=== PATIENT | male | born 1960 | race Caucasian/White ===

== ENCOUNTER 2019-11-07 15:19 | Outpatient (RCR) | payer OTHER ==
[~2019-11-07 15:19] MED LIST: COLLAGENASE OINTMENT 30 GM TUBE ONE; LIDOCAINE VISC 2% SOLN 15 ML UDC ONE; LIDOCAINE/PRILOCAINE 2.5-2.5% KIT ONE
== END 2019-11-20 ==
LOC: WCC 15:19
PROVIDERS: ATTEND Podiatrist
DX: T81.30XA Disruption of wound, unspecified, initial encounter (principal); M96.89 Other intraoperative and postprocedural complications and disorders of the musculoskeletal system; I96 Gangrene, not elsewhere classified; J44.9 Chronic obstructive pulmonary disease, unspecified; K74.69 Other cirrhosis of liver